=== PATIENT | female | born 1965 | race Caucasian/White ===

== ENCOUNTER 2021-10-27 16:38 | Inpatient (IN) | payer BC, SELFPAY ==
[2021-10-27] VITALS (15 sets, daily range): BP systolic 95–142; BP diastolic 21–97; PULSE 48–85; RESP 15–17; TEMP 36.5–37.6; O2SAT 96–100; BMI 28.8
--- NOTE | 2021-10-27 | DI.CT_ITS ---
Exam(s) CT LOWER EXTREMITY RT WO EXAM: CT LOWER EXTREMITY RT WO CLINICAL HISTORY: eval fracture extension into the joint - R ankle. TECHNIQUE: Imaging Protocol: Axial computed tomography images with coronal and sagittal reformatted images were created and reviewed. Field of view includes distal femur through the ankle. CONTRAST MATERIAL: Noncontrast COMPARISON: CR,XR XR TIB/FIB RT from 10/27/2021 CR,XR XR ANKLE RT COMPLETE from 10/27/2021 FINDINGS: There is a large knee joint hemarthrosis. There is a mildly impacted fracture of the lateral tibial plateau with no significant separation at the articular surface. No medial tibial plateau fracture i s seen. There is a spur at the lateral tibial spine but no evidence of avulsion fracture. The dista l femur and patella appear intact. A non displaced fracture of the proximal fibula is present. There is a markedly comminuted of the distal tibia with lateral and posterior displacement of the sole n fracture fragments. The fracture does not extend to the articular surface. A distal fibular fract ure is seen at the same level which is displaced posteriorly and laterally by half shaft with. There is gauze in place over the lower leg. There is a small amount soft tissue air. There is significan t soft tissue edema but no drainable collection. The talar dome and ankle mortise appear intact. No fractures are seen in the ankle. IMPRESSION: 1. Mildly depressed lateral tibial plateau fracture. Nondisplaced proximal fibular fracture. Hemar throsis. 2. Comminuted displaced fracture of the distal tibia. Displaced distal fibular fracture. RADIATION DOSE DELIVERED: 557.9mGy.cm Total DLP DATA REPOSITORY: All CT scans at this facility are submitted to the National Radiology Data Registry (NRDR) Dose Index Registry (DIR) with the [employer] (ACR). RADIATION OPTIMIZATION: All CT scans at this facility use at least one of these dose optimization te chniques: automated exposure control; mA and/or kV adjustment per patient size (includes targeted exa ms where dose is matched to clinical indication); or iterative reconstruction.
--- NOTE | 2021-10-27 16:45 | DI.RAD_ITS ---
Exam(s) XR FEMUR RT EXAM: XR FEMUR RT CLINICAL HISTORY: fall, skiing, distal leg pain, likely tib/fib frac. TECHNIQUE: 2D digital imaging was performed. COMPARISON: No exams were available for comparison FINDINGS: Exam is mildly limited by overlying material and projection. No fracture is identified. There is so me spurring at the acetabulum and femoral head. The distal femur is not included on the AP view. IMPRESSION: Unremarkable radiographs of the right femur. Mild degenerative changes of the right hip. DATA REPOSITORY: RADIATION DOSE DELIVERED:
--- NOTE | 2021-10-27 16:45 | DI.RAD_ITS ---
Exam(s) XR ANKLE RT COMPLETE XR TIB/FIB RT EXAM: XR ANKLE RT COMPLETE CLINICAL HISTORY: fall skiing, distal tib fib pain. TECHNIQUE: 2D digital imaging was performed. COMPARISON: CR,XR XR FEMUR RT from 10/27/2021 CR,XR XR TIB/FIB RT from 10/27/2021 FINDINGS: There is a comminuted, displaced fracture of the distal tibial metadiaphysis. There is lateral displ acement. There is a distal fibular fracture near the same level with mild displacement. The talar d ome and ankle mortise appear intact. Soft tissue swelling is noted greater medially. There is also a fracture of the proximal fibula there is also question of a fracture involving the tibial spines IMPRESSION: Comminuted displaced distal tibial fracture. Fractures of the proximal and distal fibula. Question of avulsion fracture of the tibial spine. DATA REPOSITORY: RADIATION DOSE DELIVERED:
[2021-10-27] MEDS: Cellulose,Oxidized 2X3 PKT 1 EACH MC ×2 (16:52→18:50)
[2021-10-27] MEDS: fentaNYL 100 MCG/2 ML VIAL 50 MCG IVP ×2 (17:08→18:24)
--- NOTE | 2021-10-27 17:30 | ED.GENADUL_ITS ---
Discharge Plan Disposition Patient Disposition: [facility] INPATIENT Condition: Stable Discharge Details Chief Complaint: Trauma Clinical Impression: Open right tibial fracture, Right fibular fracture Primary Care Provider: Unknown,Unknown ED Provider: Jeremy Salmon Home Meds and New Rx's Prescriptions: No Action No Known Home Meds 0RF Medical Decision Making 55-year-old female presents after mechanical fall while skiing, pain deformity to distal right lower extremity, punctate skin break with venous oozing, this wound overlies the area of mild deformity and ecchymosis, concerning for open fracture of distal tibia; pelvis is stable, chest abdominal exam normal, neurologically intact moving all extremities sensate without focal deficits, superficial abrasion to bridge of nose, lower suspicion for intracranial hemorrhage or skull fracture. Patient was wearing a helmet no loss of conscious no vomiting normal sensorium. Hemodynamically stable. Pain controlled with fentanyl. Will obtain x-ray of femur tib-fib and ankle right lower extremity, tetanus and prophylactic Ancef given high clinical suspicion for open fracture. Will discuss case with orthopedic surgery pending imaging. Resting comfortably after fentanyl. Spoke with Dr. Mejias of orthopedic surgery who will be taking patient to the operating room. Patient has been n.p.o. since this morning. Antibiotics and tetanus booster have been administered. Continued mild oozing from medial aspect of injury. Surgicel in place. HPI General Date/Time Provider Initiated Documentation: 10/27/21 16:40 . HPI Narrative: 55-year-old female no past medical history presents brought in by EMS after mechanical fall while skiing, pain and deformity to right lower extremity, abrasion to nasal bridge, bleeding wound to left lower extremity; patient denies loss of conscious denies chest or abdominal pain; denies blood thinner use Related Data Home Medications Medication Instructions Recorded Confirmed Unknown [No Known Home Meds] 10/27/21 10/27/21 Allergies Allergy/AdvReac Type Severity Reaction Status Date / Time No Known Allergies Allergy Unverified 10/27/21 16:45 General Stated Complaint: Trauma SHELLY: 2 Review of Systems Narrative: Review of Systems Constitutional: negative Eyes: negative ENT: negative Cardiovascular: negative Respiratory: negative Gastrointestinal: negative : negative Musculoskeletal: Left lower extremity pain and deformity Skin: Abrasion to bridge of nose, bleeding wound to left lower extremity Neurologic: negative Psych: negative PFSH All Active Problems (Updated 10/27/21 @ 19:33 by Jeremy Salmon MD) Open right tibial fracture (Acute) Right fibular fracture (Acute) Social History Smoking/Tobacco Use Status: Former Tobacco Use Smoking risk assessment performed?: Yes Substance use type: does not use Exam Narrative Exam Narrative: Physical Examination General: alert, awake, cooperative, resting comfortably, no acute distress HEENT: normocephalic, superficial abrasion to bridge of nose hemostatic; PERRL, EOM intact, conjunctiva normal; no nasal discharge; moist mucous membranes, oral and pharyngeal mucosa normal, tolerating secretions Neck: supple, trachea midline; full ROM Chest: normal to inspection; normal to palpation, normal excursion Respiratory: normal respiratory effort, speaking in full sentences, clear to auscultation, no wheezing, rales or rhonchi Cardiac: regular rate, regular rhythm, S1S2 intact, no murmurs rubs or gallops GI: abdomen soft, non-tender, non-distended; no palpable mass or hepatosplenomegaly Skin: no lesions, rashes or trauma appreciated Neuro: AAOx3, normal speech, moving all extremities Extremities: Right lower extremity: Pain and mild deformity to mid/distal tibial region with ecchymosis and a punctate area of venous bleeding with break in the skin; DP pulse intact, sensation in toes intact, able to range toes; pelvis stable no proximal femur or knee tenderness or deformity; soft compartments warm well perfused sensate Psych: Appropriate mood and affect Course Vital Signs Vital signs: Vital Signs Temperature 37.6 C H 10/27/21 16:40 Pulse 63 10/27/21 16:40 Respiratory Rate 16 10/27/21 16:40 Blood Pressure 105/21 L 10/27/21 16:40 Pulse Oximetry 99 10/27/21 16:40 Temperature 37.6 C H 10/27/21 16:40 Temperature Source Skin 10/27/21 16:40 Pulse 48 L 10/27/21 17:01 Respiratory Rate 16 10/27/21 16:40 Respiratory Effort Non-Labored 10/27/21 16:56 Respiratory Depth Normal 10/27/21 16:56 Respiratory Pattern Normal 10/27/21 16:56 Blood Pressure 128/72 10/27/21 17:01 Blood Pressure Mean 86 10/27/21 17:01 Pulse Oximetry 100 10/27/21 17:01 Oxygen Delivery Method Room Air 10/27/21 16:40 Oxygen Flow Rate 0 10/27/21 16:40 Pain Level 7 10/27/21 17:08
--- NOTE | 2021-10-27 18:12 | DI.VRAD_ITS ---
PROCEDURE INFORMATION: Exam: XR Right Tibia and Fibula Exam date and time: 10/27/2021 4:48 PM Age: 55 years old Clinical indication: Patient HX: Fall, skiing, distal tib fib pain, open wound distal tib fib TECHNIQUE: Imaging protocol: XR Right tibia and fibula. Views: 2 views. COMPARISON: No relevant prior studies available. FINDINGS: Bones/joints: Comminuted and displaced fractures of the distal tibia and fibula are present. Soft tissues: Overlying soft tissue swelling is present. IMPRESSION: 1. Comminuted and displaced fractures of the distal tibia and fibula are present. There is a fracture of the proximal fibula. 2. Overlying soft tissue swelling is present. Dictated and Authenticated by: De Ricardo MD. Ordering:ROMMEL Luna MD
--- NOTE | 2021-10-27 18:13 | DI.VRAD_ITS ---
PROCEDURE INFORMATION: Exam: XR Right Ankle Exam date and time: 10/27/2021 4:48 PM Age: 55 years old Clinical indication: Other: Distal tib fib pain, fall skiing. TECHNIQUE: Imaging protocol: XR Right ankle. Views: 3 or more views. COMPARISON: CR XR TIB/FIB RT 10/27/2021 5:24 PM FINDINGS: Bones/joints: Comminuted and displaced fractures of the distal tibia and fibula are present. There is no evidence of joint malalignment or dislocation. There is displacement of the distal tibial fracture approximately 2.0 cm laterally. Soft tissues: Overlying soft tissue disruption is noted over the distal tibial fracture. Moderate soft tissue swelling. IMPRESSION: 1. Comminuted and displaced fractures of the distal tibia and fibula are present. 2. Overlying soft tissue disruption is noted over the distal tibial fracture. 3. Moderate soft tissue swelling. 4. No evidence of acute dislocation. Dictated and Authenticated by: De Ricardo MD. Ordering:ROMMEL Luan MD
--- NOTE | 2021-10-27 18:14 | DI.VRAD_ITS ---
PROCEDURE INFORMATION: Exam: XR Right Femur Exam date and time: 10/27/2021 4:48 PM Age: 55 years old Clinical indication: Other: Distal tib fib pain, fall skiing. Open wound on tib fib TECHNIQUE: Imaging protocol: XR Right femur. Views: 2 views. COMPARISON: No relevant prior studies available. FINDINGS: Bones/joints: There is no evidence of acute fracture. There is no evidence of joint malalignment or dislocation. There are mild degenerative changes in the right hip joint. Soft tissues: No focal soft tissue swelling. IMPRESSION: 1. No evidence of acute fracture. 2. No evidence of acute dislocation. 3. There are mild degenerative changes in the right hip joint. Dictated and Authenticated by: De Ricardo MD. Ordering:ROMMEL Luna MD
[2021-10-27 18:35] LABS: Abs Immature Grans 0.03 10^3/uL (0.0-0.06); Absolute Basophil Count 0.03 10^3/uL (0.0-0.2); Absolute Lymphocyte Count 1.24 10^3/uL (1.2-3.4); Absolute Neutrophil Count 10.87 10^3/uL (1.2-6.7); Basophils % 0.2; Eosinophils % 0.2; HCT 36.6 % (36.0-46.0); HGB 11.8 g/dL (11.2-15.7); Immature Grans % 0.2; Lymphocytes % 9.6; MCH 28.9 pg (27.0-33.0); MCHC 32.2 % (32.0-36.0); MCV 89.7 fL (80-95); MPV 9.9 fL (8.0-11.0); Monocytes % 5.4; Neutrophils % 84.4; Nucleated RBC 0 %; Platelet Count 285 10^3/uL (130-400); RBC 4.08 10^6/uL (3.93-5.22); RDW 12.8 % (11.7-14.6); RDW-SD 42.3 fL; WBC 12.88 10^3/uL (4.4-10.8)
[2021-10-27 18:38] LABS: ALT 21 U/L (14-59); AST 15 U/L (15-37); Albumin 3.7 g/dL (3.4-5.0); Alkaline Phosphatase 81 U/L (46-116); Anion Gap 8.7 mmol/L (3-11); BUN 10 mg/dL (7-18); Bilirubin, Total 0.4 mg/dL (0.2-1.0); CO2 24.3 mmol/L (21.0-32.0); CREATININE 0.7 mg/dL (0.55-1.02); Calcium 8.3 mg/dL (8.5-10.1); Chloride 108 mmol/L (98-107); Glucose 115 mg/dL (74-106); Sodium 141 mmol/L (136-145); Total Protein 6.7 g/dL (6.4-8.2)
[2021-10-27 18:47] LABS: Absolute Eosinophil Count 0.03 10^3/uL (0.0-0.7)
[2021-10-27 19:49] LABS: Source Nasal/Nares
--- NOTE | 2021-10-27 19:52 | W.ORTHOCONSU ---
History of Present Illness Narrative: Blanca is a 55-year-old active female who was skiing today. She fell awkwardly and slid down a long distance and in the process her ski got stuck in snow twisting her right leg. She had immediate pain. She had notable deformity and bleeding. [place] to the emergency department where she was diagnosed with a right distal tib-fib fracture which was open. She denies any head trauma. She does have a very small abrasion to the bridge of her nose. She denies any active numbness or tingling. She is able to wiggle her toes. She denies any pain of the knee, femur, hip. She denies loss of consciousness. She denies any significant medical history. She reports to be very active and has no preinjury pain or issues with her right lower extremity. She has a history of psoriasis which is controlled. She takes no active medications. Consults Consult date: 10/27/21 Requesting physician: Jeremy Salmon Consult Reason Open right tibia fracture Assessment and Plan Assessment and plan (1) Fracture of right proximal fibula: Status: Acute (2) Type I or II open fracture of distal end of fibula and tibia: Status: Acute Assessment and plan: Blanca is a 55-year-old active female who unfortunately suffered a open fracture of her right distal tibia and fibula. Given the open nature of the injury I recommended a dose of antibiotics here in the emergency department. I also recommended urgent irrigation debridement with fixation of the fracture. While the fracture of the tibia is notably comminuted and distal, I do think this can be fixed with an intramedullary device. I did review this with Blanca. Given the open nature I recommend that we proceed urgently to take care of this which she agrees with. I discussed the surgery to include the washout of the open wound and also fixation of the bone. I discussed the risk of the procedure to include bleeding, infection, pain, stiffness, damage to nerves and vessels, damage to muscles and tendons, malunion, nonunion, hardware prominence, hardware failure, malrotation, blood clot, need for repeat procedures. Despite these risks, she elects to proceed. She had a smoothie earlier in the day but otherwise has nothing else by mouth. She is currently being COVID-19 tested but has no current symptoms and has had no known exposures. We will proceed to the operating room this evening. Continued NPO. Will admit to [facility] following surgery. Review of Systems All systems reviewed & are unremarkable except as noted in HPI and below PFSH All Active Problems (Updated 10/27/21 @ 20:08 by Reagan Mejias MD) Type I or II open fracture of distal end of fibula and tibia (Acute) Fracture of right proximal fibula (Acute) Psoriasis (Chronic) Open right tibial fracture (Acute) Right fibular fracture (Acute) Social History Smoking/Tobacco Use Status: Former Tobacco Use Smoking risk assessment performed?: Yes Substance use type: does not use Exam Const General: cooperative, healthy appearing, comfortable, no acute distress and well developed Resp Effort & Inspection: normal respiratory effort Auscultation: clear to auscultation bilaterally Cardio Rate: regular rate Rhythm: regular rhythm Extrem Other: Evaluation of the right lower extremity shows an obvious wound to the medial aspect of the distal right leg. The foot is externally rotated relationship to the knee. There is some swelling and bleeding present over the medial aspect of the ankle. There is a small laceration skin with active bleeding. Measuring about 1 cm. Minimal swelling seen distal to the ankle. No pain to palpation approximate level of the knee except for overlying the proximal fibula. However, there is no skin defect over the proximal aspect of the fibula. No bruising or bleeding this area. There are multiple small psoriatic plaques which have no signs of infection and no open sores. No pain to palpation about the femur. Sensation intact to light touch over the superficial and deep peroneal nerves as well as the tibial nerve. Palpable DP pulse. She has intact great toe extension and great toe flexion. Knee ligament exam is limited due to pain and the obvious injury and defect to the right lower leg. Results Last Vital Signs Temp 37.6 C H 10/27/21 16:40 Pulse 58 L 10/27/21 18:15 Resp 16 10/27/21 16:40 BP 128/62 10/27/21 18:15 Pulse Ox 99 10/27/21 18:15 Labs Result diagrams: 10/27/21 18:05 10/27/21 18:05 Labs: Laboratory Results - last 24 hr 10/27/21 10/27/21 10/27/21 18:05 18:05 18:05 WBC 12.88 H RBC 4.08 Hgb 11.8 Hct 36.6 MCV 89.7 MCH 28.9 MCHC 32.2 RDW 12.8 Plt Count 285 MPV 9.9 Immature Gran % 0.2 Neutrophils % 84.4 Lymphocytes % 9.6 Monocytes % 5.4 Eosinophils % 0.2 Basophils % 0.2 Nucleated RBC % 0 Absolute Neutrophils 10.87 H Absolute Lymphocytes 1.24 Absolute Monocytes 0.70 Absolute Eosinophils 0.03 Absolute Basophils 0.03 Sodium 141 Potassium 4.0 Chloride 108 H Carbon Dioxide 24.3 Anion Gap 8.7 BUN 10 Creatinine 0.7 Estimated GFR/1.73 m2 >= 60.00 Glucose 115 H Calcium 8.3 L Total Bilirubin 0.4 AST 15 ALT 21 Alkaline Phosphatase 81 Total Protein 6.7 Albumin 3.7 COVID-19 Source Patient ABO/Rh O Positive Antibody Screen NEGATIVE 10/27/21 19:40 WBC RBC Hgb Hct MCV MCH MCHC RDW Plt Count MPV Immature Gran % Neutrophils % Lymphocytes % Monocytes % Eosinophils % Basophils % Nucleated RBC % Absolute Neutrophils Absolute Lymphocytes Absolute Monocytes Absolute Eosinophils Absolute Basophils Sodium Potassium Chloride Carbon Dioxide Anion Gap BUN Creatinine Estimated GFR/1.73 m2 Glucose Calcium Total Bilirubin AST ALT Alkaline Phosphatase Total Protein Albumin COVID-19 Source Nasal/Nares Patient ABO/Rh Antibody Screen Imaging Imaging Studies: X-ray of the right femur shows no sign of fracture. No suspicious lesions. X-ray of the right tib-fib as well as right ankle demonstrates a comminuted fracture of the distal tibia and fibula. The tibia fracture has notable comminution at its medial aspect as well as posterior laterally. There is an obvious defect in the skin seen on the x-ray with lateral translation of the ankle and some shortening. The fracture of the distal fibula is transverse and translated approximately 1 shaft width. There also appears to be a nondisplaced or slightly shortened fracture about the proximal fibula.
--- NOTE | 2021-10-27 19:55 | W.ANESPRE ---
General Info Date of Service Date Performed: 10/27/21 Height: 5 ft 8 in Weight: 86.183 kg Body Mass Index (BMI): 28.8 Surgical Procedure: Operation Date: 10/27/21 19:50 Proposed Procedure Side Surgeon p Tibial Rodding/IM Nailing Right Reagan Mejias MD Meds Allergies and Home Medications Allergies Allergy/AdvReac Type Severity Reaction Status Date / Time No Known Allergies Allergy Unverified 10/27/21 16:45 Home Medication Medication Instructions Recorded Unknown [No Known Home Meds] 10/27/21 [facility] Active Problems Active Problems: Problem Status Onset Code Open right tibial fracture S82.201B Right fibular fracture S82.401A Tobacco Smoking/Tobacco Use Status: Former Tobacco Use Substance Use Substance use type: does not use Vital Signs and Lab Results Vital Signs Most Recent Vital Signs in EMR: Most Recent Vital Signs Temp Pulse Resp BP Pulse Ox 37.6 C H 58 L 16 128/62 99 10/27/21 16:40 10/27/21 18:15 10/27/21 16:40 10/27/21 18:15 10/27/21 18:15 Lab Results Result Diagrams: 10/27/21 18:05 10/27/21 18:05 Blood Type / Crossmatch: Patient ABO/Rh O Positive 10/27/21 Antibody Screen NEGATIVE 10/27/21 Complete Blood Count: White Blood Count 12.88 10^3/uL (4.4-10.8) H 10/27/21 18:05 10/27/21 Red Blood Count 4.08 10^6/uL (3.93-5.22) 10/27/21 18:05 10/27/21 Hemoglobin 11.8 g/dL (11.2-15.7) 10/27/21 18:05 10/27/21 Hematocrit 36.6 % (36.0-46.0) 10/27/21 18:05 10/27/21 Platelet Count 285 10^3/uL (130-400) 10/27/21 18:05 10/27/21 Complete Metabolic Panel: Sodium Level 141 mmol/L (136-145) 10/27/21 18:05 10/27/21 Potassium Level 4.0 mmol/L (3.5-5.1) 10/27/21 18:05 10/27/21 Chloride Level 108 mmol/L (98-107) H 10/27/21 18:05 10/27/21 Carbon Dioxide Level 24.3 mmol/L (21.0-32.0) 10/27/21 18:05 10/27/21 Blood Urea Nitrogen 10 mg/dL (7-18) 10/27/21 18:05 10/27/21 Creatinine 0.7 mg/dL (0.55-1.02) 10/27/21 18:05 10/27/21 Estimated GFR/1.73 m2 >= 60.00 (mL/min/1.73m2) 10/27/21 18:05 10/27/21 Calcium Level 8.3 mg/dL (8.5-10.1) L 10/27/21 18:05 10/27/21 Albumin 3.7 g/dL (3.4-5.0) 10/27/21 18:05 10/27/21 Glucose Level 115 mg/dL (74-106) H 10/27/21 18:05 10/27/21 Liver Function Panel: Alanine Aminotransferase (ALT/SGPT) 21 U/L (14-59) 10/27/21 18:05 10/27/21 Aspartate Amino Transf (AST/SGOT) 15 U/L (15-37) 10/27/21 18:05 10/27/21 Coagulation Panel: No Data to Display Cardiac Panel: No Data to Display Arterial Blood Gas: No Data to Display Venous Blood Gas: No Data to Display Pancreas Panel: No Data to Display Thyroid Panel: No Data to Display Infectious Disease: Coronavirus (COVID-19)(PCR) Pending 10/27/21 19:40 10/27/21 Coronavirus 2019 Source Nasal/Nares 10/27/21 19:40 10/27/21 Blood Cultures: No Data to Display Toxicology Panel: No Data to Display Panel: No Data to Display Anesthesia Assessment and Plan Anesthesia History Personal History: No History of General Anesthesia Family History: No Family History of Anesthesia Complications Exercise Tolerance Exercise Tolerance: Metabolic Equivalents>4 Pertinent Negatives Pertinent Negatives: No Symptoms of GERD, No Major Cardiovascular Symptoms or Complaints and No Major Pulmonary Symptoms or Complaints Cardiac & Pulmonary Exam Cardiac Exam: Normal S1/S2 Heart Sounds Pulmonary Exam: Clear Bilateral Breath Sounds Implantable Cardiac Device Does patient have a Pacemaker or an ICD?: No Airway Exam Known Difficult Airway: No Mallampati Class: 2 Mouth Opening: Normal (> 3cm) Thyromental Distance: Greater than 3 cm Neck Range of Motion: Full ROM Neck Circumference: Normal Teeth Condition: Normal Dentition ASA Classification ASA Score: ASA 2 Emergency Case?: No NPO Status NPO Status: NPO Clears >2 hours, Solids >8 hours Status Status: Not Relevant due to Medical History Anesthesia Plan Resuscitation Status: Full Code Anesthesia Technique: General Anesthesia Airway Planned: Endotracheal Tube Monitors Used: Standard Monitors
--- NOTE | 2021-10-27 20:08 | DI.RAD_ITS ---
Exam(s) XR TIB/FIB RT EXAM: XR TIB/FIB RT CLINICAL HISTORY: DISTAL TIBIA AND FIBULA FRACTURE, RIGHT. TECHNIQUE: 2D and realtime digital imaging was performed. Seven hard copy images. COMPARISON: No exams were available for comparison FINDINGS: Hard copy images show placement of an intramedullary yolanda through the tibia for fracture fixation. T he alignment is nearly anatomic. Please see procedure note for details. Fluoro time 3 minutes 15 seconds RADIATION DOSE DELIVERED: kulwant Amato=6.58 mGy
[2021-10-27 20:28] LABS: COVID-19 PCR Negative (Negative)
--- NOTE | 2021-10-27 20:48 | DI.VRAD_ITS ---
PROCEDURE INFORMATION: Exam: CT Right Lower Extremity Without Contrast; Lower Leg Exam date and time: 10/27/2021 7:44 PM Age: 55 years old Clinical indication: Other: Eval FX extension into the joint. R-ankle TECHNIQUE: Imaging protocol: CT of the Right lower extremity without contrast was performed. Exam focused on the lower leg. Radiation optimization: All CT scans at this facility use at least one of these dose optimization techniques: automated exposure control; mA and/or kV adjustment per patient size (includes targeted exams where dose is matched to clinical indication); or iterative reconstruction. COMPARISON: CR XR TIB/FIB RT 10/27/2021 5:24 PM FINDINGS: Bones/joints: Comminuted fracture of the distal tibia is present. There is displacement of the distal tibial fracture approximately 1.4 cm laterally. There is a displaced fracture of the distal diaphysis of the fibula present with approximately 6 mm medial and anterior displacement of the distal fracture fragment. Nondisplaced fracture of the proximal fibula present. There is no evidence of joint malalignment or dislocation. Suprapatellar joint effusion is present. Ankle mortise is intact. Soft tissues: Moderate soft tissue swelling over the distal leg with subcutaneous air present. IMPRESSION: 1. Comminuted fracture of the distal tibia is present. 2. There is displacement of the distal tibial fracture approximately 1.4 cm laterally. 3. There is a displaced fracture of the distal diaphysis of the fibula present with approximately 6 mm medial and anterior displacement of the distal fracture fragment. 4. Nondisplaced fracture of the proximal fibula present. 5. Moderate soft tissue swelling over the distal leg with subcutaneous air present. 6. No evidence of acute dislocation. 7. Suprapatellar joint effusion is present. Dictated and Authenticated by: De Ricardo MD. Ordering:MARKOS Kirk MD
[2021-10-27] MEDS: Lactated Ringers 1,000 ML 30 ML IV (20:58)
[2021-10-27] MEDS: Bupivacaine 0.5% Pres-Free 30 ML VIAL (21:33)
--- NOTE | 2021-10-27 23:30 | ROE_ITS ---
Date of service: 12/22/18 Time of Service: 14:07 Operative Note Operative Note DATE OF PROCEDURE: 10/27/21 PRE-OP DIAGNOSIS: Right Open Tibia and Fibula Fracture POST-OP DIAGNOSIS: same Right Knee Hemarthrosis with Recurvatum and Proximal Fibula Fracture PROCEDURE: Right Intramedullary Fixation of Tibia Fracture SURGEON: Reagan Mejias TELEPHONE COIN BOX COLLECTOR: Mandy Solis ANESTHESIA TYPE: General LMA/ETT Refer to Anesthesia Record ESTIMATED BLOOD LOSS: 100 PATHOLOGY: none sent COMPLICATIONS: None Patient was transported to: PACU Patient's condition: stable Implants: Depuy-Synthes Tibial Nail EX 10mm x 345mm Indications: Blanca is a 55 year old female who presented to the Emergency Department after a fall while skiing. X-rays confirmed the diagnosis of a comminuted right tibia fracture which was open in addition to a fibula shaft fracture and a proximal fibula fracture. I reviewed the possible treatment options and given the open fracture, I recommended irrigation and debridement with operative fixation. I discussed the technical details of the surgery. I reviewed the risks such as bleeding, infection, pain, stiffness, malunion, nonunion, hardware prominence, hardware faiilure, malrotation, damage to nerves and vessels, blood clot. Despi te these risks, Blanca agreed to proceed. Findings: There was a grade 1 open fracture of the tibia. This was extended 2 cm in both the proximal and distal direction. There is some soft tissue stripping from the medial tibia in this region. Soft tissue in position from the fracture site was removed. The wound was irrigated with 3 L normal saline. There is notable comminution at the level of the fracture medially with some soft tissue attachments, therefore it was left. Reduction was obtained with manipulation with clamps. A tibial IM nail was placed. 3 distal locking screws were inserted. During the insertion of the nail a small cut in the synovium was made incidentally and this revealed a large hemarthrosis within the knee. At the conclusion of the case the knee was tested and it showed at least 20 to 25 degrees of recurvatum. It appeared to be stable in both varus and valgus stress. I also was unable to text significant anterior drawer. There seem to be some laxity with posterior drawer but is difficult to appreciate on the operating room table. Procedure Description: Blanca was greeted in the preoperative area. Consent was previously reviewed and signed. Once in the operating room, anesthesia was administered. The patient was transferred to the operating room table in the supine position. She was positioned with the operative side placed onto a bone foam ramp. All bony prominences were well padded. Arms were placed out to the side, padded, and secured. Prophylactic antibiotics, cefazolin 2 grams, was given for prophylactic antibiotics. A timeout was performed for safe surgery. The right leg was prepped with Betadine given the open injury. The leg was draped with a stockinette and U drapes. The open injury was extended 2 cm above the proximal and distal direction. Blunt dissection carried down to the soft tissues to expose the medial tibia. There is notable comminution this level. Fracture was palpable. There was some interposition of tissue within the fracture fragments. This was removed bluntly. I then irrigated this area with 3 L normal saline. Once this was completed reduction was obtained by manually manipulating these distal and medial fragments and placing a clamp at the more proximal aspect of the fracture. Reduction was difficult to ascertain given the fragmentation of this medial edge as well as the comminution proximally. However, it appeared to be well reduced. With this held in position, I proceeded with placement of the intramedullary nail. An incision was then made over the lateral aspect of the knee. This was taken down from the midpoint of patella at his lateral margin following the lateral aspect of the patellar tendon down to the tibial tubercle. The skin was incised sharply. The retinacular tissues were then incised sharply as well. The synovium underlying this was visualized and bluntly dissected off of the anterior, proximal tibia. The patella was mobilized medially allowing access to the central portion of the proximal tibia. A starting position in line with the axis of the tibia, approximate the level of the lateral spine, and at the ventral edge of the proximal tibia was made with the awl. X-ray in both the AP and lateral views were used to confirm this positioning. The awl was then advanced manually into the proximal tibia. This was once again confirmed to be in good position on the AP and lateral views. The ball-tipped guidewire was then inserted through the awl and into the proximal tibia. A bend in the guidewire was placed prior to insertion allowing it to make the turn off the back of the tibia. The ball-tipped guidewire was then advanced across the fracture site into the distal tibia. It was confirmed to be in appropriate positions on both the AP and the lateral. This was then measured. Using a tissue protector to protect proximal tissues, the tibia was reamed from 8.5 mm to 11.5mm. During the reaming process a small tear in the synovium became apparent. It was noticed by a lua of blood from within the knee. This represented a large hemarthrosis which was unexpected. The reaming was largely extrasynovial in the anterior knee and it was unlikely from the reaming itself but from intra-articular injury. A #1 Vicryl suture was placed within the small synovial tear. The 10mm x 345mm Synthes tibial nail EX was opened. The nail was assembled to the aiming arm on the back table and confirmed to be aligned with the trochars for screw insertion. Using manual force the nail was advanced into the tibia. A few light mallet blows advanced the nail through the proximal tibia and down into the final seated position of the distal tibia, approximately at the level of the physeal scar. AP and lateral x-rays of both the knee and the ankle and the entire tibia was performed. They show appropriate positioning of the tibial nail. Starting distally, perfect circles were obtained for each screw. Distal locking screws were placed. These were inserted to be bicortical but prominence was attempted to be minimized as much as possible without compromising stability and screw purchase. 3 distal screws were placed in the distalmost holes, all 3 within the distal fracture fragment. Attention was then turned to the proximal aspect. Th rough the targeting arm, two 5.0 millimeter screws were placed. One was placed in the dynamic hole and the other was placed in the static hole. These were placed without difficulty and once again were ensured to be bicortical. The targeting device was removed. AP and lateral x-rays of were taken of the tibia and fibula. The fracture site is once again investigated and showed to be well aligned as was the overall alignment of the leg. The deep tissues and superficial tissues of the leg and the incision sites were injected with a mixture of 30 cc of 0.5% bupivacaine. I then examined the knee. It appeared to be stable with varus and valgus stress. However, interestingly, there is significant recurvatum of about 20 degrees. There is seem to be some soft endpoint to posterior drawer test and a solid endpoint anterior drawer test. However, with the positioning of a bone foam and where he were on the bed it was difficult to fully appreciate it. The wounds were thoroughly irrigated. The retinaculum of the knee was reapproximated with a running #1 Vicryl. The deep tissue was closed with a 2-0 Vicryl followed by running 4-0 nylon. The smaller wounds for screw placement were closed with Vicryl and nylon in a similar fashion. The wounds were dressed with Xeroform, 4 x 4's, ABD, Kerlix, Lauri wrap. At the end of the case, all counts were correct. Blanca tolerated the procedure well without known complication and was taken to the PACU for recovery. Physical therapy will start post-operatively, weightbearing as tolerated with a knee immobilizer Anticoagulation will start within 12-24 hours. 3 doses of post-operative antibiotics for prophylaxis will be administered.
--- NOTE | 2021-10-27 23:53 | W.ANESPOSTOP ---
Postoperative Evaluation Date, Time and Location Date Performed: 10/27/21 Time Performed: 23:53 Patient Location: PACU Vital Signs Most Recent Imported Vital Signs: Most Recent Vital Signs Temp Pulse Resp BP Pulse Ox 36.8 C 70 16 124/62 96 10/27/21 23:45 10/27/21 23:45 10/27/21 23:45 10/27/21 23:45 10/27/21 23:45 Pain Score Most Recent Pain Score: Most Recent Pain Score Pain Level [Right Lower Tib/ 7 10/27/21 16:56 Fib(lower leg)] Pain Level 0 10/27/21 23:45 Assessment Mental Status: Awake (Alert & Oriented to Patient Baseline) Airway and Respiratory Function: Patent airway with normal (patient baseline) respiratory exam Cardiovascular Function: Hemodynamically Stable Hydration Status: Adequately Hydrated Nausea & Vomiting: No Nausea or Vomiting Pain: Pain is tolerable per patient Peripheral Nerve Block: Patient did not receive a nerve block
[2021-10-28] VITALS (9 sets, daily range): BP systolic 98–130; BP diastolic 61–72; PULSE 58–82; RESP 17–22; TEMP 36.3–37.1; O2SAT 95–99
[2021-10-28] MEDS: ceFAZolin 1 GM/50 ML BAG IVPB ×2 (03:44→12:05)
[2021-10-28] MEDS: Ketorolac 15 MG/ML VIAL IVP ×2 (03:44→09:47)
--- NOTE | 2021-10-28 06:59 | PGE_ITS ---
Date of Service Date of service: 10/28/21 Time of Service: 06:20 Assessment and Plan Assessment and plan (1) Type I or II open fracture of distal end of fibula and tibia: Status: Acute Assessment and plan: Blanca is a 55-year-old female who is status post irrigation and debridement with intervention nail fixation of a right comminuted distal tibia fibula fracture. He did have some bleeding from the wound this morning which is not unexpected given the open injury, soft tissue stripping, and comminution. Dressings have been changed. She will be partial weightbearing on the right lower extremity. She may place as much weight as she wants to on the right leg but do so with the assistance of her arms using crutches or a walker. From mobilization I would recommend a knee immobilizer be placed. However, if not mobilizing, the knee immobilizer may be removed. No restriction in range of motion although I would focus primarily on range of motion about the foot and ankle to start. We will do a single dose of Lovenox today with expected discharge on aspirin for DVT prophylaxis. Regular diet. PT consult this morning and discharge home when safe. (2) Closed fracture of lateral portion of right tibial plateau: Status: Acute Subjective Subjective Interval history since last seen: Blanca reports to be doing well. He feels pain is well controlled. She has some discomfort but she thinks is tolerable. Nursing has reported increasing bloody discharge on the Lauri wrap distally. She denies any significant numbness or tingling. No fevers no chills. No chest pain or shortness of breath. Exam Extrem Other: Evaluation of the right leg shows bloody drainage over the distal aspect of the dressing. She is able to gently dorsiflex and plantarflex ankle as well as extend and flex the great toe. She endorses sensation to the deep and superficial peroneal nerve and tibial nerve. The dressings are removed and the re is no amount of bloody discharge from the medial wound, open injury from the fracture. There is no active bleeding appreciable. Minimal swelling seen. The distal dressings are fully removed and reinforced with gauze, ABD, Kerlix and an Lauri wrap. Objective Last Vital Signs Temp 37 C 10/28/21 06:00 Pulse 64 10/28/21 06:00 Resp 19 10/28/21 06:00 BP 101/70 10/28/21 06:00 Pulse Ox 97 10/28/21 06:00 Laboratory Results - last 24 hr 10/27/21 10/27/21 10/27/21 18:05 18:05 18:05 WBC 12.88 H RBC 4.08 Hgb 11.8 Hct 36.6 MCV 89.7 MCH 28.9 MCHC 32.2 RDW 12.8 Plt Count 285 MPV 9.9 Immature Gran % 0.2 Neutrophils % 84.4 Lymphocytes % 9.6 Monocytes % 5.4 Eosinophils % 0.2 Basophils % 0.2 Nucleated RBC % 0 Absolute Neutrophils 10.87 H Absolute Lymphocytes 1.24 Absolute Monocytes 0.70 Absolute Eosinophils 0.03 Absolute Basophils 0.03 Sodium 141 Potassium 4.0 Chloride 108 H Carbon Dioxide 24.3 Anion Gap 8.7 BUN 10 Creatinine 0.7 Estimated GFR/1.73 m2 >= 60.00 Glucose 115 H Calcium 8.3 L Total Bilirubin 0.4 AST 15 ALT 21 Alkaline Phosphatase 81 Total Protein 6.7 Albumin 3.7 COVID-19 Source SARS-CoV-2 (PCR) Patient ABO/Rh O Positive Antibody Screen NEGATIVE 10/27/21 19:40 WBC RBC Hgb Hct MCV MCH MCHC RDW Plt Count MPV Immature Gran % Neutrophils % Lymphocytes % Monocytes % Eosinophils % Basophils % Nucleated RBC % Absolute Neutrophils Absolute Lymphocytes Absolute Monocytes Absolute Eosinophils Absolute Basophils Sodium Potassium Chloride Carbon Dioxide Anion Gap BUN Creatinine Estimated GFR/1.73 m2 Glucose Calcium Total Bilirubin AST ALT Alkaline Phosphatase Total Protein Albumin COVID-19 Source Nasal/Nares SARS-CoV-2 (PCR) Negative Patient ABO/Rh Antibody Screen
[2021-10-28] MEDS: Acetaminophen 500 MG TAB 1000 MG PO ×2 (08:35→13:53)
[2021-10-28] MEDS: Normal Saline 50 ML (09:49)
[2021-10-28] MEDS: Normal Saline Flush 10 ML SYR (09:49)
--- NOTE | 2021-10-28 09:58 | IN_ITS ---
Date of service: 10/28/21 Time of Service: 09:38 PT Notes Visit Reasons: [facility] In[facility] Initial Evaluation Date: 10/28/2021 Referring Doctor: Reagan Mejias MD PT Orders: PT CONSULT: S/P Ortho surgery. S/P IMN fixation of R tibia fracture. Knee immobilizer for mobilization. Precautions: Fall. Standard. WBAT on R LE with AD. Patient Profile/Admitting Diagnosis: Patient is a 55-year-old female with R knee hemarthrosis with recurvatum, proximal fibular fracture, and R tibia fibula fracture, S/P intramedullary fixation on postoperative day 1. PMHX: All Active Problems?(Updated 10/27/21 @ 20:08 by Reagan Mejias MD) Type I or II open fracture of distal end of fibula and tibia (Acute) Fracture of right proximal fibula (Acute) Psoriasis (Chronic) Open right tibial fracture (Acute) Right fibular fracture (Acute) Social History/Home Situation: Lives in [place], [place] with in a private home with one step to enter. [employer] skier. Equipment Owned/DME: None Subjective: Teary-eyed this morning, stating hse is depressed. Agreeable with getting out of bed and walking. Reports soreness in her L calf. pain the R leg at 2-3/10 throughout ambulation activity using AD. Objective: General Observation: Supine in bed. ARIELLE wraps to L LE. IV in R UE. Mental Status: Alert and oriented as to person, place, time, and purpose. Able to pay attention, focus, and respond appropriately. Pain: 2-3/10 in R UE Vital Signs: WNL as monitored by nursing staff ROM: Right Lower Extremity: Hip flexion WFL. Hip abduction WFL. Knee flexion NT. Ankle dorsiflexion NT. Ankle plantarflexion NT. Left Lower Extremity: Hip flexion WFL. Hip abduction WFL. Knee flexion WFL. Ankle dorsiflexion WFL. Ankle plantarflexion WFL. Strength: Right Lower Extremity: Hip flexors 4/5. Hip abductors 4/5. Knee flexors NT. Knee extensors NT. Ankle dorsiflexors NT. Ankle plantarflexors NT. Left Lower Extremity: Hip flexors 5/5. Hip abductors 5/5. Knee flexors 5/5. Knee extensors 5/5. Ankle dorsiflexors 5/5. Ankle plantarflexors 5/5. Bed Mobility/Transfers: Rolling independent Supine to sit independent Sit to supine independent Sit to stand supervision Stand to sit supervision Bed to reclining chair supervision Gait: Instructed patient with level surface ambulation of 200 feet requiring stand by assist. Akiko decreased. Knee immobilizer on. Cues given for heel-toe gait pattern. Reports feeling a little clumsy with right foot placement due to bandages. Balance: Static Sitting: Normal Dynamic Sitting: Normal Static Standing: Fair Dynamic Standing: Fair Special Tests: Mobility Limitations Standardized Measure [facility] AM-PAC 6 clicks Basic Mobility Inpatient Short Form: Raw Score: 23 CMS Score: 11% deficit Informed Consent/Education: Patient was instructed in purpose of PT consult and plan of care. Agreeable to proceed with established PT POC to achieve personal goals. Assessment: Patient demonstrates functional mobility decline, difficulty with walking, we akness of R knee and ankle muscle groups. Patient is a 55-year-old female with R knee hemarthrosis with recurvatum, proximal fibular fracture, and R tibia fibula fracture, S/P intramedullary fixation on postoperative day 1. Patient presents with clinical signs and symptoms consistent with current/admitting diagnoses that have resulted to mobility limitations, gait instability, generalized weakness, and overall ADL decline as demonstrated by the following impairment level findings: 1. Decreased strength to R knee and ankle major muscle groups 2. Impaired sitting/standing balance 3. Impaired activity tolerance 4. Limitation of joint range of motion in R knee and ankle 5. Pain in R leg at 3-4/10 6. Difficulty with heel-toe gait pattern Impairments are contributing to the following functional limitations: 1. Difficulty with ambulation without assistive device 2. Increased completion time for mobility ADL performance 3. Increased risk for falls 4. Difficulty with managing steps alone safely Patient is assessed as a 26186 moderate complexity based on the following: History: 55-year-old femalewith past medical history as indicated above Examination: Demonstrable impairment in strength, balance, and mobility level with underlying impairments and functional limitations as exhibited above as well as deficit score of 11% utilizing the [facility] Mobility Inp atient Short Form Presentation: Evolving Decision Makin moderate complexity Goals: Goals X1 week 1. Supine-Sit independent 2. Sit-Supine independent 3. Sit-Stand independent 4. Stand-Sit independent with FWW 5. Bed-Chair independent with FWW 6. Chair-Bed independent with FWW 7. Independent gait on level surface with use of FWW for at least 300 feet without report of pain nor dyspnea 8. Independent stair negotiation while holding onto B rails for at least 3 steps without report of pain nor dyspnea Plan of Care/Treatment Plan: 1-2x/day, 7 days/week x 1 week. Plan of care has been reviewed with the [facility] TECHNICIAN providing the service under Physical Therapy direction. Initiate Physical Therapy intervention for pain management as needed, strengthening, bed mobility, transfers, gait, stairs, balance training, and use of assistive device. DISCHARGE RECOMMENDATIONS: [] Home with no services [] [X] Home with services. Home when medically cleared by orthopedic surgeon. Will highly benefit from outpatient PT services in order to progress mobility level with the least restrictive device and facilitate return to premorbid independent level. [] Home with outpatient PT [] Follow [] SNF for continued rehabilitation [] [] [facility] [] [] SNF versus LTC based on ability to participate and progress [] TREATMENT CODE/TIME: 15237 x 20 minutes, 04910 x 26 minutes beginning at 9:58 AM. Thank you for the opportunity to participate in the care of this patient. Susanne Renee PT, DPT, CLT [facility] [place], [place]
[2021-10-28] MEDS: Normal Saline Flush 10 ML SYR IVP (12:11)
--- NOTE | 2021-10-28 13:05 | PT.INDS ---
Date of service: 10/28/21 Time of Service: 13:05 PT Notes Visit Reasons: [facility] Inpatient Discharge Summary Date: 10/28/2021 Dates of Service: 10/28/2021 only Referring Doctor:? Reagan Mejias MD PT Orders: PT CONSULT: S/P Ortho surgery. S/P IMN fixation of R tibia fracture. Knee immobilizer for mobilization. Precautions: Fall. Standard. WBAT on R LE with AD. Patient Profile/Admitting Diagnosis:? Patient is a 55-year-old female with R knee hemarthrosis with recurvatum, proximal fibular fracture, and R tibia fibula fracture,? S/P intramedullary fixation on postoperative day 1. PMHX: All Active Problems?(Updated 10/27/21 @ 20:08 by Reagan Mejias MD) Type I or II open fracture of distal end of fibula and tibia (Acute) Fracture of right proximal fibula (Acute) Psoriasis (Chronic) Open right tibial fracture (Acute) Right fibular fracture (Acute) Social History/Home Situation: Lives in [place], [place] with in a private home with one step to enter.? [employer] skier. Equipment Owned/DME: None Subjective: Teary-eyed this morning, stating hse is depressed.? Agreeable with getting out of bed and walking.? Reports soreness in her L calf.? pain the R leg at 2-3/10 throughout ambulation activity using AD. Objective: General Observation: Supine in bed.? ARIELLE wraps to L LE.? IV in R UE.? Mental Status: Alert and oriented as to person, place, time, and purpose. Able to pay attention, focus, and respond appropriately. Pain: 2-3/10 in R UE Vital Signs: WNL as monitored by nursing staff ROM: Right Lower Extremity: Hip flexion WFL. Hip abduction WFL. Knee flexion NT. Ankle dorsiflexion NT. Ankle plantarflexion NT. Left Lower Extremity: Hip flexion WFL. Hip abduction WFL. Knee flexion WFL. Ankle dorsiflexion WFL. Ankle plantarflexion WFL. Strength: Right Lower Extremity: Hip flexors 4/5. Hip abductors 4/5. Knee flexors NT. Knee extensors NT. Ankle dorsiflexors NT. Ankle plantarflexors NT. Left Lower Extremity: Hip flexors 5/5. Hip abductors 5/5. Knee flexors 5/5. Knee extensors 5/5. Ankle dorsiflexors 5/5. Ankle plantarflexors 5/5. Bed Mobility/Transfers: Rolling independent Supine to sit independent Sit to supine independent Sit to stand supervision Stand to sit supervision Bed to reclining chair supervision Gait: Instructed patient with level surface ambulation of 250 feet requiring stand by assist. Akiko decreased. Knee immobilizer on. Cues given for heel-toe gait pattern.? Reports feeling a little clumsy with right foot placement due to bulky bandages. Balance: Static Sitting: Normal Dynamic Sitting: Normal Static Standing: Fair Dynamic Standing: Fair Assessment: Patient demonstrates functional mobility decline, difficulty with walking, weakness of R knee and ankle muscle groups. ? Patient is a 55-year-old female with R knee hemarthrosis with recurvatum, proximal fibular fracture, and R tibia fibula fracture,? S/P intramedullary fixation on postoperative day 1. Patient presents with clinical signs and symptoms consistent with current/admitting diagnoses that have resulted to mobility limitations, gait instability, generalized weakness, and overall ADL decline as demonstrated by the following impairment level findings: 1.? Decreased strength to R knee and ankle major muscle groups 2.? Impaired sitting/standing balance 3.? Impaired activity tolerance 4.? Limitation of joint range of motion in R knee and ankle 5.? Pain in R leg at 3-4/10 6.? Difficulty with heel-toe gait pattern Impairments are contributing to the following functional limitations: 1.? Difficulty with ambulation without assistive device 2.? Increased completion time for mobility ADL performance 3.? Increased risk for falls 4.? Difficulty with managing steps alone safely Goals: Goals X1 week 1. Supine-Sit independent MET 2. Sit-Supine independent MET 3. Sit-Stand independent NOT MET 4. Stand-Sit independent with FWW NOT MET 5. Bed-Chair independent with FWW NOT MET 6. Chair-Bed independent with FWW NOT MET 7. Independent gait on level surface with use of FWW for at least 300 feet without report of pain nor dyspnea NOT MET 8. Independent stair negotiation while holding onto B rails for at least 3 steps without report of pain nor dyspnea NOT MET DISCHARGE RECOMMENDATIONS: [] ? Home with no services [] [] ? Home with services.? [X] ? Home with outpatient PT. Home when medically cleared by orthopedic surgeon.? Will highly benefit from outpatient PT services in order to progress mobility level with the least restrictive device and facilitate return to premorbid independent level. Follow [] ? SNF for continued rehabilitation [] [] ? [facility] [] [] ? SNF versus LTC based on ability to participate and progress [] TREATMENT CODE/TIME: 78081 x 65 minutes beginning at 13:05 PM. Thank you for the opportunity to participate in the care of this patient. Susanne Renee PT, DPT, CLT [facility] [place], [place]
--- NOTE | 2021-10-28 14:18 | W.PM.DS.N ---
DS: Diagnosis Discharge Diagnosis (1) Type I or II open fracture of distal end of fibula and tibia: Status: Acute (2) Closed fracture of lateral portion of right tibial plateau: Status: Acute (3) Fracture of right proximal fibula: Status: Acute Discharge Plan Disposition Patient Disposition: HOME Condition: Stable Discharge Details Reason For Visit: Mike Admit Date/Time: 10/27/21 19:45 Admit Provider: Reagan Mejias Attending Provider: Reagan Mejias Primary Care Provider: Unknown,Unknown Hospital Course Hospital Course: Blanca is a 55-year-old who had a fall while skiing and suffered an open right tibia fracture. She was also diagnosed with a fibular shaft fracture as well as a proximal fibular fracture and a lateral tibial plateau fracture. Given the open nature of the injury she was taken to the operating room from the emergency department for urgent irrigation debridement and intramedullary nail fixation of the fracture. She received 24 hours of antibiotics. She tolerated procedure well and was able to mobilize physical therapy with a walker. She was deemed safe for discharge to home. Home Meds and New Rx's Prescriptions: New hydrocodone-acetaminophen 5-325 mg tablet 1 tab PO Q6H PRN (Reason: pain) Qty: 12 0RF acetaminophen 500 mg tablet 500 mg PO Q6H PRN PRN (Reason: pain) Qty: 90 3RF ibuprofen 600 mg tablet 600 mg PO TID PRN (Reason: pain) Qty: 90 3RF Discharge Instructions Additional Instructions: Discharge Instructions Activity: You may bear weight some weight on the leg as long as the brace is on and you are using your walker. Some weight should always be placed on the arms - partial weight bearing. You should keep the brace on initially for sleep and for any mobilization. You may remove or unfasten the knee immobilizer when you are resting and not moving. It is encouraged to work on moving your ankle and toes as much as you can. Dressing: You should keep the knee dressing in place until your follow-up appointment. If it becomes soiled or it unravels, you should call and notify the office. You may rewrap or overwrap until the follow-up. Medications: - You should take Tylenol and Ibuprofen around the clock for the first days-weeks. This will cover baseline pain control. - You have been prescribed a stronger medication, Hydrocodone, if needed. If this is necessary, and you need a refill, please call the office at [phone]. Referrals: Reagan Mejias MD [ [facility] STAFF PHYSICIAN] - [facility] [Provider Group] (ALEXANDRA. R tib-fib fracture) Equipment/Supplies: Walker Activity:: Elevate Remove Dressings/Wound Care:: Do Not Remove Shower/Bathe:: Cover Activity:: Activity as Tolerated Equipment/Supplies:: Walker Diet:: As Tolerated Discharge Orders Discharge Orders: Discharge Order (Routine); Ordered 10/28/21 Ordered By: Reagan Mejias DS: Summary Time Spent with Patient providing and/or coordinating discharge services: Less than 30 minutes Status at Discharge Functional status at discharge: uses cane/walker Overall status at discharge: patient is progressing back to baseline Mental Status: mental status grossly normal Speech and Movement: speech and movement normal Mood: congruent mood Affect: normal affect Exam Psych Mental Status: mental status grossly normal Speech and Movement: speech and movement normal Mood: congruent mood Affect: normal affect DS: Data Vitals/I&O Vitals and I&O: Vital Signs Temperature 36.6 C 10/28/21 11:03 Temperature Source Tympanic 10/28/21 11:03 Pulse 58 L 10/28/21 11:03 Pulse Rhythm Regular 10/28/21 10:32 Respiratory Rate 19 10/28/21 06:00 Respiratory Effort Non-Labored 10/28/21 10:32 Respiratory Depth Normal 10/28/21 10:32 Respiratory Pattern Normal 10/28/21 10:32 Blood Pressure 98/64 L 10/28/21 11:03 Blood Pressure Mean 77 10/27/21 20:01 Pulse Oximetry 95 10/28/21 11:03 Respiratory End-tidal CO2 35 10/27/21 23:55 Oxygen Delivery Method Room Air 10/28/21 11:03 Oxygen Flow Rate 0 10/28/21 11:03 Pain Level 2 10/28/21 11:03 Intake & Output 10/27/21 10/28/21 10/28/21 23:59 11:59 23:59 Intake Total 500 / 500 224.5 / 464.5 240 / 464.5 Output Total 2475 / 2475 Balance 500 / 500 -2250.5 / -2010.5 240 / -2009. Weight 86.183 kg 89 kg Intake: IV 500 / 500 124.5 / 124.5 Oral 0 / 0 100 / 340 240 / 340 Output: Urine 2475 / 2475 Other: Urine Color Yellow Urine Appearance Clear Urine Odor Normal Emesis Description None Voiding Methods Toilet Data Completed and Pending Labs on day of discharge: Labs from last 24 hours 10/27/21 10/27/21 10/27/21 19:40 18:05 18:05 WBC 12.88 H RBC 4.08 Hgb 11.8 Hct 36.6 MCV 89.7 MCH 28.9 MCHC 32.2 RDW 12.8 Plt Count 285 MPV 9.9 Immature Gran % 0.2 Neutrophils % 84.4 Lymphocytes % 9.6 Monocytes % 5.4 Eosinophils % 0.2 Basophils % 0.2 Nucleated RBC % 0 Absolute Neutrophils 10.87 H Absolute Lymphocytes 1.24 Absolute Monocytes 0.70 Absolute Eosinophils 0.03 Absolute Basophils 0.03 Sodium Potassium Chloride Carbon Dioxide Anion Gap BUN Creatinine Estimated GFR/1.73 m2 Glucose Calcium Total Bilirubin AST ALT Alkaline Phosphatase Total Protein Albumin COVID-19 Source Nasal/Nares SARS-CoV-2 (PCR) Negative Patient ABO/Rh O Positive Antibody Screen NEGATIVE 10/27/21 18:05 WBC RBC Hgb Hct MCV MCH MCHC RDW Plt Count MPV Immature Gran % Neutrophils % Lymphocytes % Monocytes % Eosinophils % Basophils % Nucleated RBC % Absolute Neutrophils Absolute Lymphocytes Absolute Monocytes Absolute Eosinophils Absolute Basophils Sodium 141 Potassium 4.0 Chloride 108 H Carbon Dioxide 24.3 Anion Gap 8.7 BUN 10 Creatinine 0.7 Estimated GFR/1.73 m2 >= 60.00 Glucose 115 H Calcium 8.3 L Total Bilirubin 0.4 AST 15 ALT 21 Alkaline Phosphatase 81 Total Protein 6.7 Albumin 3.7 COVID-19 Source SARS-CoV-2 (PCR) Patient ABO/Rh Antibody Screen [facility] All Active Problems (Updated 10/28/21 @ 07:37 by Reagan Mejias MD) Closed fracture of lateral portion of right tibial plateau (Acute) Type I or II open fracture of distal end of fibula and tibia (Acute) Fracture of right proximal fibula (Acute) Psoriasis (Chronic) Open right tibial fracture (Acute) Right fibular fracture (Acute) Social History Smoking/Tobacco Use Status: Former Tobacco Use Smoking risk assessment performed?: Yes Substance use type: does not use
[2021-10-28] MEDS: oxyCODONE 5 MG TAB PO (15:13)
--- NOTE | 2021-10-28 16:27 | INITIAL_ITS ---
- If Service Date Differs Date of service: 10/28/21 Time of Service: 16:27 Care Management Initial Assess REASON FOR HOSPITALIZATION:: Multiple fractures RT LE PAST MEDICAL HISTORY/PAST SURGICAL HISTORY:: Type I or II open fracture of distal end of fibula and tibia (Acute). Fracture of right proximal fibula (Acute). Psoriasis (Chronic). Open right tibial fracture (Acute). Right fibular fracture (Acute) PREVIOUS FUNCTIONAL STATUS/SOCIAL/FAMILY SUPPORTS:: Blanca resides in [place] with her . Their adult daughter resides nearby as well as her father. Her inlaws reside in [place]. Blanca and her are staying the [facility] for the month of October. Blanca is independent at baseline. CURRENT FUNCTIONAL STATUS:: Blanca is pleasant in interaction and forthcoming with information. She reviews times of trauma and loss in her life. She is hopeful for a fast recovery and plans on staying in [place] for the next two weeks. ADVANCE DIRECTIVES:: None on file. Has patient been provided with info about the portal/API?: Yes Did the patient sign up for the portal?: No CODE STATUS:: Full Code INSURANCE COVERAGE / FINANCIAL ISSUES:: [employer] CURRENT HOME/COMMUNITY SERVICES/EQUIPMENT:: None, currently. PRIMARY CARE PHYSICIAN:: No local. POTENTIAL DISCHARGE NEEDS:: PT renee, DME, outpatient referral. PATIENT/FAMILY EDUCATION NEEDS:: Review discharge instructions, discuss Ask Me Three. ANTICIPATED BARRIERS TO DISCHARGE:: None identified. TRANSPORTATION:: Via private vehicle with her . PLAN:: Blanca will return to [facility] where she is vacationing with her . She will have a new FWW and a referral for Outpatient PT at [facility] in [place]. She will transport via private vehicle with her .
--- NOTE | 2021-10-28 17:01 | CMDISCH_ITS ---
- If Service Date Differs Date of service: 10/28/21 Time of Service: 17:01 LACE Index Scoring Tool - Questions: Length of Stay (in days): 1 Acuity (Admit via E.D.?): Yes E.D. Visits: 1 - Answers: Total Score: 5 Risk of Readmission: Low Risk Care Management Discharge Reason for Hospitalization: Multiple fractures RT LE Discharge Plan: Blanca will return to [facility] where she is vacationing with her . She will have a new FWW and a referral for Outpatient PT at [facility] in [place]. She will transport via private vehicle with her . Patient/Family Education Needs: Review discharge instructions, discuss Ask Me Three. Services Needed at Discharge: DME Agency (FWW), Outpatient Therapy (NPT)
== END 2021-10-28 15:33 | disposition home or self-care (01) | DRG 494 ==
LOC: DSU 23:36 → ER 23:36 → MS 23:37
PROVIDERS: Admitting Provider Student in an Organized Health Care Education/Training Program; Emergency Provider Emergency Medicine; Visit Provider Student in an Organized Health Care Education/Training Program
PROC: 0QSG06Z Reposition Right Tibia with Intramedullary Internal Fixation Device, Open Approach (ICD-10-PCS; CPT 27759; principal; 2021-10-27 19:50)
DX: S82.251B Displaced comminuted fracture of shaft of right tibia, initial encounter for open fracture type I or II (principal); S82.831B Other fracture of upper and lower end of right fibula, initial encounter for open fracture type I or II; S82.141A Displaced bicondylar fracture of right tibia, initial encounter for closed fracture; S82.831A Other fracture of upper and lower end of right fibula, initial encounter for closed fracture; S89.81XA Other specified injuries of right lower leg, initial encounter; W19.XXXA Unspecified fall, initial encounter; Y93.23 Activity, snow (alpine) (downhill) skiing, snowboarding, sledding, tobogganing and snow tubing; L40.9 Psoriasis, unspecified; Y92.838 Other recreation area as the place of occurrence of the external cause; Z87.891 Personal history of nicotine dependence
CPT/HCPCS: 27759; 73552; 80053; 86850; 86900; 86901; 87635; 90471; 96365; 96375; 97162; 97530; 99284; 99285; 73590; 73600; 73610; 73700; 85025; J0690; J1100; J1885; J2250; J2405; J2704; J3010

== ENCOUNTER 2021-11-03 13:52 | Outpatient (CLI) | payer BC, SELFPAY ==
--- NOTE | 2021-11-03 13:00 | DI.RAD_ITS ---
Exam(s) XR TIB/FIB RT EXAM: XR TIB/FIB RT CLINICAL HISTORY: post op. TECHNIQUE: 2D digital imaging was performed. COMPARISON: Prior x-rays 10/27/2021 FINDINGS: Two views There is no long intramedullary yolanda across the comminuted fracture of the distal tibia. There appear s to be satisfactory alignment at this level. The adjacent fibular fracture exhibits minimal change. The oblique fracture at the fibular neck is also again noted. The lateral tibial plateau fracture (documented on prior imaging) is difficult to appreciate on these images. No hardware loosening. There is no radiographic evidence of osteomyelitis IMPRESSION: DATA REPOSITORY: RADIATION DOSE DELIVERED:
--- NOTE | 2021-11-03 13:00 | DI.RAD_ITS ---
Exam(s) XR KNEE RT 2V AP,LAT EXAM: XR KNEE RT 2V AP,LAT CLINICAL HISTORY: post op. TECHNIQUE: 2D digital imaging was performed. COMPARISON: CT CT LOWER EXTREMITY RT WO from 10/27/2021 CR XR TIB/FIB RT from 11/03/2021 FINDINGS: Again noted is long intramedullary yolanda in the tibia. Subtle nondisplaced fracture of the lateral tib ial plateau is again noted as is nondisplaced fracture of the fibular neck. There is minimal if any significant step at the fractured lateral tibial plateau surface. Medial tibial plateau and sub spin ous plateau are intact. No no prominent joint effusion at this time. IMPRESSION: DATA REPOSITORY: RADIATION DOSE DELIVERED:
== END 2021-11-03 13:53 | disposition home or self-care (01) ==
LOC: DIORS 13:52
PROVIDERS: Visit Provider Student in an Organized Health Care Education/Training Program
DX: S82.121A Displaced fracture of lateral condyle of right tibia, initial encounter for closed fracture (principal); S82.309 Unspecified fracture of lower end of unspecified tibia; S82.83 Other fracture of upper and lower end of fibula; X58.XXXA Exposure to other specified factors, initial encounter
CPT/HCPCS: 73560; 73590